=== PATIENT | male | born 1960 | race Asian ===

== ENCOUNTER 2018-04-08 08:04 | Emergency (ER) | payer SELFPAY ==
[~2018-04-08] VITALS: Ht 172.7 cm; Wt 56.6 kg
[2018-04-08] MEDS ORDERED: ESCI10TA54 MT (08:22)
[2018-04-08] MEDS ORDERED: MELA3TAB10 MT (08:30)
[2018-04-08] MEDS ORDERED: TRAZ-129 MT (08:30)
[2018-04-08] MEDS ORDERED: GEMF600T3 PO (08:30)
[2018-04-08] MEDS ORDERED: OLAN20TA16 MT (08:30)
[2018-04-08] MEDS ORDERED: CHOL20004 MT (08:30)
[2018-04-08] MEDS ORDERED: HYDR-2412 MT (08:32)
[2018-04-08 09:52] LABS: CLARITY URINE CLEAR (CLEAR); COLOR URINE YELLOW (YELLOW); KETONES URINE NEGATIVE (NEGATIVE); LEUKOCYTE ESTERASE URINE 2+ (NEGATIVE); NITRITE URINE NEGATIVE (NEGATIVE); OCCULT BLOOD URINE TRACE (NEGATIVE); PROTEIN URINE NEGATIVE (NEGATIVE); SPECIFIC GRAVITY URINE 1.021 (1.005-1.030)
[2018-04-08 10:28] LABS: BASOPHILS % 0.7 % (0.0-2.0); EOSINOPHILS % 1.9 % (0.0-5.0); HEMATOCRIT. 40.6 % (42.0-52.0); HEMOGLOBIN. 13.8 g/dL (14.0-18.0); LYMPHOCYTES % 16.3 % (20.0-50.0); MEAN CORPUSCULAR HEMOGLOBIN 30.2 pg (28.0-32.0); MEAN CORPUSCULAR VOLUME 88.5 fL (80.0-94.0); MEAN PLATELET VOLUME 7.4 fl (7.4-10.4); MONOCYTES % 11.9 % (2.0-8.0); NEUTROPHILS % 69.2 % (40.0-76.0); PLATELET 273 x1000/uL (130-400); RED BLOOD CELL COUNT 4.58 mill/uL (4.7-6.1); RED CELL DISTRIBUTION WIDTH 13.1 % (11.6-14.6)
[2018-04-08 10:35] LABS: CHLORIDE 107 mEq/L (98-107)
[2018-04-08 11:39] VITALS: BP 110/62
== END 2018-04-08 11:41 | disposition home or self-care (01) ==
LOC: ER 08:26
DX: N39.0 Urinary tract infection, site not specified (principal)
CPT/HCPCS: 36415; 80048; 81003; 85025; 87077; 87086; 87186; 99284; Z7610